=== PATIENT | female | born 1980 | race Caucasian/White ===

== ENCOUNTER → 2021-02-06 | Outpatient (CLI) | payer OTHER ==
[~2021-02-06] MED LIST: IBUPROFEN600 MG PO
== END ==
LOC: LAB 00:10 → EROP 00:10 → OPSV 00:10 → EDSTATUS 07:46
DX: R05 Cough (principal); R06.7 Sneezing; R09.81 Nasal congestion; Z20.822 Contact with and (suspected) exposure to COVID-19
CPT/HCPCS: U0002